=== PATIENT | female | born 2000 | race African-American/Black ===

== ENCOUNTER 2025-08-03 12:21 | Emergency (ER) | payer MEDICAID ==
[~2025-08-03] VITALS: Ht 162.6 cm; Wt 48.4 kg
[2025-08-03 12:27] VITALS: BP 107/71; PULSE 97; RESP 15; TEMP 98; O2SAT 99
== END 2025-08-03 14:38 | disposition left against medical advice (07) ==
LOC: ER 12:21
DX: N93.9 Abnormal uterine and vaginal bleeding, unspecified (principal); Z79.899 Other long term (current) drug therapy